=== PATIENT | male | born 1990 | race Caucasian/White ===

== ENCOUNTER 2023-04-06 13:05 | Inpatient (IN) ==
[2023-04-06] MEDS ORDERED: CONSULT PHARMACY - POTASSIUM & MAGNESIUM XX SCH (14:00)
[2023-04-06] MEDS ORDERED: NS 1,000 ML IV 1,000 ML IV SCH ×2 (14:00→18:00)
[2023-04-06] MEDS ORDERED: TYLENOL ELIXIR 325 MG UDC PO PRN (15:24)
[2023-04-06] MEDS ORDERED: NS IRRIGATION* 500 ML IR ONE (15:30)
[2023-04-06] MEDS: PROTONIX INJ 40 MG VIAL IVP SCH (15:42)
[2023-04-06] MEDS: ZOSYN VIAL 3.375 GRAMS 3.375 G in NS 100 ML IV 100 ML IV SCH ×3 (15:42→21:30)
[2023-04-06] MEDS: LEVAQUIN PREMIX IV 500 MG 500 MG/100 ML BAG IV SCH (15:42)
[2023-04-06 15:49] LABS: MAGNESIUM 1.8 mg/dL (2.0-2.9)
[2023-04-06] MEDS ORDERED: OFIRMEV IV 1000 MG VIAL 1,000 MG/100 ML VIAL IV ONE (15:51)
[2023-04-06] MEDS: OFIRMEV IV 1000 MG VIAL 1,000 MG/100 ML VIAL IV STA ×2 (15:54→16:28)
[2023-04-06 15:58] LABS: LACTIC ACID 4.4 mmol/L (0.4-2.0)
--- NOTE | 2023-04-06 16:19 | RAD ---
HISTORYLEUKOCYTOSIS CLAVICLESTUDYCHEST, 1 VIEWCOMPARISONNone availableFINDINGSThe trachea is midline. Normal heart size, there is mild elevation of the left diaphragm. There is a plate in the left clavicle. There is mild ground-glass radiopacities through the lungs. No pneumothorax or pleural effusions.IMPRESSIONGround-glass radiopacities through the lungs could represent pneumonitis or viral pneumonia clinical correlation is recommended.Electronically signed by: Marcia Balbuena (Apr 06, 2023 16:18:17)
[2023-04-06] MEDS ORDERED: NS 1,000 ML IV 500 ML IV ONE (16:27)
[2023-04-06] MEDS ORDERED: XOPENEX 1.25 MG/3 ML NEBULE NEB ONE (17:02)
[2023-04-06] MEDS: XOPENEX 1.25 MG/3 ML NEBULE NEB SCH (17:13)
[2023-04-06] MEDS ORDERED: NS 1,000 ML IV 1,000 ML with MAGNESIUM SULFATE 50% INJ VIAL 1 G IV SCH ×2 (18:00)
[2023-04-06] MEDS ORDERED: MAGNESIUM SULFATE 50% INJ VIAL ONE (18:26)
[2023-04-06] MEDS ORDERED: NS 1,000 ML IV 1,000 ML ONE (18:26)
--- NOTE | 2023-04-06 18:32 | DR.H&P ---
H&P - History & Physical for Day of: H&P Date: 04/06/23 - Chief Complaint Chief Complaint: SACRAL DECUBITUS ULCERATION, LEUKOCYTOSIS - History of Present Illness History of Present Illness: PT IS 32 WM, RESIDENT OF [facility] FOLLOWING A TRAUMATIC BRAIN INJURY. PT WAS A DIRECTED ADMIT DUE TO INFECTED SACRAL DECUBITUS WITH CT CONFIRMING OSTEOMYELITIS. PT HAD BLOOD IN HIS URINE WHEN INSERTING A CANTOR CATH WITHOUT RECENT UTI. BLOOD CULTURES AND OUTPT LABS WERE OBTAINED PRIOR TO ADMISSION REVEALING WBC 31,000. PT IS TOTAL CARE WITH MARKED NEUROLOGICAL DEFICIT, HAS COLOSOTMY AND PEG TUBE. PT ADMITTED FOR TREATMENT AND EVALUATION OF ACUTE ILLNESS. - Past Surgical History Surgical History: Bowel Resection, Ortho Surgery, Spleenectomy - Family History Family Medical History: Hypertension - Social History Does patient currently use any type of tobacco product: No Have you used tobacco products in the last 12 months: No Type of Tobacco Use: None Does any household member use tobacco: No Alcohol Use: None Drug Use: None - Review of Systems Constitutional: Fever, Weakness Eyes: No Symptoms Reported ENT: No Symptoms Reported Respiratory: No Symptoms Reported Cardiovascular: No Symptoms Reported Gastrointestinal: No Symptoms Reported Genitourinary: Hematuria Musculoskeletal: No Symptoms Reported Skin: Wound Neurological: Weakness - Physical Exam Vital Signs: Vital Signs Temperature 102.3 F Temperature 100.7 F Pulse Rate [Right Brachial] 138 Pulse Rate 121 Pulse Rate 122 Pulse Rate 122 Pulse Rate 127 Pulse Rate 136 Pulse Rate 133 Pulse Rate 131 Pulse Rate 134 Pulse Rate 133 Respiratory Rate 20 Respiratory Rate 28 Blood Pressure [Left Calf] 91/51 Blood Pressure 117/59 Blood Pressure 117/59 Blood Pressure 112/59 Blood Pressure 117/56 O2 Sat by Pulse Oximetry 100 O2 Sat by Pulse Oximetry 99 O2 Sat by Pulse Oximetry 100 O2 Sat by Pulse Oximetry 100 O2 Sat by Pulse Oximetry 98 O2 Sat by Pulse Oximetry 99 O2 Sat by Pulse Oximetry 99 O2 Sat by Pulse Oximetry 98 O2 Sat by Pulse Oximetry 98 O2 Sat by Pulse Oximetry 92 Oriented: Person Ear: Normal Nose: Normal Throat: Normal Respiratory: RLL Diminished, LLL Diminished Cardiovascular: Tachycardia : Normal Auscultation: Bowel Sounds: Normal Skin: Decreased Turgur, Wound Musculoskeletal: Deformity, Motor Deficit, Sensory Deficit Affect: Anxious Speech Pattern: Aphasic - Assessment/Plan (1) Osteomyelitis Status: Acute Plan: ADMIT, ICU BLOOD AND URINE CULTURES OBTAINED. CXR AND SUPPLEMENTAL O2 ON ADMISSION. IV HYDRATION, STRICT I&OS. RESP AIT SWAB, RESP THERAPY. IV ZOSYN, ZITHROMAX AND LEVAQUIN. VERIFY HOME MEDICATION, SURGICAL CONSULT. WOUND CULTURES, WOUND CARE. NEURO CHECKS, COLOSTOMY AND PEG TUBE CARE (2) Sacral decubitus ulcer, stage IV Status: Acute (3) Pneumonia Status: Acute (4) Traumatic brain injury with neurologic deterioration Status: Chronic - Allergies Allergies/Adverse Reactions: Allergies Allergy/AdvReac Type Severity Reaction Status Date / Time No Known Drug Allergies Allergy Unverified 03/28/19 12:29 - Medications Home Medications: Home Medications Medication Instructions Recorded Confirmed acetaminophen 325 mg tablet 650 mg feeding tube Q6H PRN 04/06/23 04/06/23 amantadine HCl 50 mg/5 mL oral 100 mg feeding tube BID 04/06/23 04/06/23 solution apixaban 5 mg tablet 5 mg feeding tube BID 04/06/23 04/06/23 baclofen 10 mg tablet 30 mg feeding tube TID 04/06/23 04/06/23 docusate sodium 50 mg/5 mL oral 100 mg feeding tube Q12H PRN 04/06/23 04/06/23 liquid Constipation doxazosin 1 mg tablet 1 mg feeding tube QDAY 04/06/23 04/06/23 famotidine 40 mg tablet 40 mg PO BID 04/06/23 04/06/23 magnesium hydroxide 400 mg/5 mL 400 mg PO ONCE 04/06/23 04/06/23 oral suspension (Milk of Magnesia) oxycodone-acetaminophen 5 mg-325 1 tab feeding tube Q8H PRN Pain 04/06/23 04/06/23 mg tablet polyethylene glycol 3350 17 17 g feeding tube QDAY PRN 04/06/23 04/06/23 gram/dose oral powder Constipation
--- NOTE | 2023-04-06 19:19 | EKG ---
Test Reason : PER PROTOCOL Blood Pressure : */* mmHG Vent. Rate : 129 BPM Atrial Rate : 129 BPM P-R Int : 124 ms QRS Dur : 84 ms QT Int : 308 ms P-R-T Axes : 75 61 47 degrees QTc Int : 451 ms Sinus tachycardia Septal infarct , age undetermined Abnormal ECG No previous ECGs available Confirmed by Topher Campuzano ([id number]) on 04/08/2023 12:51:06 PM Referred By: Confirmed By: Topher Campuzano
[2023-04-06] MEDS ORDERED: PULMICORT NEB TX 0.5 MG NEB ONE (19:21)
[2023-04-06 19:58] LABS: LACTIC ACID 2.2 mmol/L (0.4-2.0); PHOSPHORUS 3.1 mg/dL (2.6-4.7)
[2023-04-06 20:00] LABS: CREATINE KINASE 128 Units/L (39-308)
[2023-04-06] MEDS: PULMICORT NEB TX 0.5 MG NEB SCH (20:20)
[2023-04-06 20:58] LABS: BILIRUBIN,URINE NEGATIVE (NEGATIVE); BLOOD/HEMOGLOBIN,URINE 5+ (NEGATIVE); GLUCOSE, URINE NEGATIVE (NEGATIVE); KETONES,URINE NEGATIVE (NEGATIVE); LEUKOCYTE ESTERASE ,URINE 3+ (NEGATIVE); NITRITES,URINE NEGATIVE (NEGATIVE); PROTEIN,URINE 3+ (NEGATIVE); UROBILINOGEN,URINE NORMAL (NORMAL)
[2023-04-06 21:06] LABS: APPEARANCE,URINE CLOUDY (CLEAR); BACTERIA,URINE 3+ /HPF (NEGATIVE); COLOR,URINE AMBER (YELLOW); RBC,URINE TNTC /HPF (0-3); SQUAMOUS EPITHELIAL CELL,UR FEW /HPF (NEGATIVE)
[2023-04-06 21:07] LABS: HYALINE CASTS, URINE MANY /LPF (NEGATIVE)
[2023-04-06] MEDS: NS 1,000 ML IV 1,000 ML with MAGNESIUM SULFATE 50% INJ VIAL 1 G IV SCH ×2 (21:27)
[2023-04-06] MEDS: MAGNESIUM SULFATE 1 GRAM/100 mL PREMIX 1 G/100 ML BAG IV SCH (21:29)
[2023-04-06] MEDS: ROBITUSSIN DM PO SCH ×2 (21:29→21:30)
[2023-04-06] MEDS: ZITHROMAX INJ 500 MG VIAL 500 MG in NS 250 ML IV 250 ML IV SCH (21:30)
[2023-04-07] MEDS: XOPENEX 1.25 MG/3 ML NEBULE NEB SCH ×4 (00:06→17:37)
[2023-04-07 00:51] LABS: CREATINE KINASE 161 Units/L (39-308)
[2023-04-07] MEDS: NS 1,000 ML IV 1,000 ML with MAGNESIUM SULFATE 50% INJ VIAL 1 G IV SCH ×2 (02:18)
--- NOTE | 2023-04-07 05:07 | RAD ---
PROCEDURE: Chest X-ray 1 View .HISTORY: PNEUMONIA .TECHNIQUE: AP portable done at 4:33 a.m..COMPARISON: 04/06/2023.TECHNICAL QUALITY: Satisfactory .FINDINGS:Normal size heart .Mediastinum and hilar regions show no masses or lymphadenopathy .Normal central vascularity .No pulmonary consolidation, masses, pleural fluid, or pneumothorax. Patient's hand is projected over right lung base.Previous internal reduction of left clavicle fracture with plate and screws.IMPRESSION:No active cardiopulmonary disease .Electronically signed by: Darrel Serrano (Apr 07, 2023 05:06:23)
[2023-04-07] MEDS: ZOSYN VIAL 3.375 GRAMS 3.375 G in NS 100 ML IV 100 ML IV SCH ×3 (05:25→21:03)
[2023-04-07 05:51] LABS: BASOPHILS # (AUTO) 0.1 X10^3/uL (0.0-0.1); BASOPHILS % (AUTO) 0.4 % (0.2-1.0); EOSINOPHILS % (AUTO) 0.1 % (0.9-2.9); HEMATOCRIT 32.3 % (42.0-54.0); HEMOGLOBIN 10.4 g/dL (13.5-18.0); LYMPHOCYTES % (AUTO) 3.4 % (21.0-51.0); MEAN CORPUSCULAR HEMOGLOBIN 26.3 pg (27.0-34.0); MEAN CORPUSCULAR HGB CONC 32.2 g/dL (33.0-35.0); MEAN CORPUSCULAR VOLUME 81.7 fL (80.0-100.0); MEAN PLATELET VOLUME 9.1 fL (7.4-11.0); MONOCYTES # (AUTO) 0.8 x10^3/uL (0.3-0.8); MONOCYTES % (AUTO) 2.8 % (0.0-13.0); NEUTROPHILS # (AUTO) 26.5 x10^3/uL (2.2-4.8); NEUTROPHILS % (AUTO) 93.3 % (42.0-75.0); PLATELET COUNT 350 X10^3/uL (150.0-450.0); RED BLOOD COUNT 3.95 X10^6/uL (4.7-6.0); RED CELL DISTRIBUTION WIDTH 17.6 % (11.6-16.5); WHITE BLOOD COUNT 28.4 X10^3/uL (3.6-10.0)
[2023-04-07 06:01] LABS: LACTIC ACID 1.2 mmol/L (0.4-2.0)
[2023-04-07 06:03] LABS: BAND NEUTROPHILS % 7 % (0-10); PLATELET MORPHOLOGY COMMENT NORMAL (NORMAL)
[2023-04-07 06:04] LABS: ANISOCYTOSIS SLIGHT; TARGET CELLS SLIGHT
[2023-04-07 06:12] LABS: ALANINE AMINOTRANSFERASE 113 Units/L (12-78); ALBUMIN 2.5 g/dL (3.4-5.0); ALKALINE PHOSPHATASE 147 Units/L (46-116); ASPARTATE AMINO TRANSFERASE 62 Units/L (15-37); BLOOD UREA NITROGEN 24 mg/dL (7-18); CALCIUM 8.3 mg/dL (8.5-10.1); CARBON DIOXIDE 25.4 mmol/L (21-32); CHLORIDE 103 mmol/L (98-107); COR CA(FOR HYPOALB) 9.5 mg/dL (8.5-10.1); CREATININE 1.04 mg/dL (0.70-1.30); GLUCOSE 108 mg/dL (65-99); POTASSIUM 3.4 mmol/L (3.5-5.1); SODIUM 138 mmol/L (136-145); TOTAL PROTEIN 6.3 g/dL (6.4-8.2); eGFR NON BLACK RACES > 60 (>60)
[2023-04-07 06:13] LABS: CREATINE KINASE 127 Units/L (39-308)
[2023-04-07] MEDS ORDERED: CONSULT PHARMACY - POTASSIUM & MAGNESIUM XX SCH (07:00)
[2023-04-07] MEDS ORDERED: MIRALAX POWDER (255 GRAMS BTL) PO PRN (08:37)
[2023-04-07] MEDS: PULMICORT NEB TX 0.5 MG NEB SCH ×2 (08:40→20:30)
[2023-04-07] MEDS ORDERED: K-DUR TAB 20 MEQ PO SCH (09:00)
[2023-04-07] MEDS: PROTONIX INJ 40 MG VIAL IVP SCH (09:22)
[2023-04-07] MEDS: LEVAQUIN PREMIX IV 500 MG 500 MG/100 ML BAG IV SCH (09:22)
[2023-04-07] MEDS: ELIQUIS NG SCH ×2 (09:29→20:13)
[2023-04-07] MEDS: AMANTADINE HCL PEG SCH ×2 (09:29→20:01)
[2023-04-07] MEDS: LIORESAL PEG SCH ×3 (09:30→21:02)
[2023-04-07] MEDS: ROBITUSSIN DM PO SCH ×4 (09:30→20:07)
[2023-04-07] MEDS: PEPCID TAB 40 MG PEG SCH ×2 (09:30→20:13)
[2023-04-07] MEDS: ZITHROMAX INJ 500 MG VIAL 500 MG in NS 250 ML IV 250 ML IV SCH (10:26)
[2023-04-07] MEDS: NS 1,000 ML IV 1,000 ML IV SCH ×3 (10:29→22:37)
[2023-04-07] MEDS ORDERED: VERSED ONE (12:36)
[2023-04-07] MEDS ORDERED: KETAMINE 50 MG/5 ML-NACL SYRNG ONE (12:36)
[2023-04-07] MEDS ORDERED: DIPRIVAN VIAL 20 ML ONE (12:37)
[2023-04-07] MEDS ORDERED: ANCEF VIAL 1 GRAM ONE (13:01)
[2023-04-07] MEDS ORDERED: LR 1,000 ML IV 1,000 ML IV ONE (13:01)
[2023-04-07] MEDS ORDERED: NS 100 ML IV 100 ML ONE (13:02)
[2023-04-07] MEDS ORDERED: XYLOCAINE 1 % (PLAIN) ONE ×2 (13:06→13:57)
[2023-04-07] MEDS ORDERED: FENTANYL VIAL INJ 100 mcg ONE (13:38)
[2023-04-07] MEDS ORDERED: POLYMYXIN B SULFATE ONE (13:59)
[2023-04-07] MEDS ORDERED: NS IRRIGATION* 500 ML IR ONE (14:48)
[2023-04-07] MEDS: INDERAL TAB 10 MG PEG SCH ×2 (15:22→21:03)
[2023-04-07] MEDS ORDERED: STERILE WATER IRRIGATION IR ONE (15:42)
--- NOTE | 2023-04-07 16:52 | RAD ---
HISTORYPAC PLACEMENT.brSTUDYCHEST, 1 VIEW, 2:35 p.m.OIMMBNOKID49/27/2023, 4:33 a.m.FINDINGSRight subclavian central venous MediPort catheter is in the expected location of the superior cavoatrial junction.Lungs are moderately inflated with no pneumonia or pleural effusion. No pneumothorax.Heart size is normal.Bones are unremarkable.Fixation hardware is present on the left clavicle.IMPRESSION1. Uncomplicated line placementElectronically signed by: Raul Blair (Apr 07, 2023 16:50:39)
[2023-04-07] MEDS ORDERED: KLOR-CON GT SCH (21:00)
[2023-04-08] MEDS: XOPENEX 1.25 MG/3 ML NEBULE NEB SCH ×4 (00:10→16:45)
[2023-04-08] MEDS: NS 1,000 ML IV 1,000 ML IV SCH ×2 (04:59→05:12)
[2023-04-08] MEDS: LIORESAL PEG SCH ×3 (05:00→21:17)
[2023-04-08] MEDS: INDERAL TAB 10 MG PEG SCH ×3 (05:00→21:18)
[2023-04-08] MEDS: ZOSYN VIAL 3.375 GRAMS 3.375 G in NS 100 ML IV 100 ML IV SCH ×3 (05:00→21:19)
[2023-04-08 06:31] LABS: BASOPHILS # (AUTO) 0.1 X10^3/uL (0.0-0.1); BASOPHILS % (AUTO) 0.3 % (0.2-1.0); EOSINOPHILS # (AUTO) 0.2 x10^3/uL (0.0-0.2); EOSINOPHILS % (AUTO) 0.9 % (0.9-2.9); HEMATOCRIT 29.3 % (42.0-54.0); HEMOGLOBIN 9.3 g/dL (13.5-18.0); LYMPHOCYTES # (AUTO) 2.1 X10^3/uL (1.3-2.9); LYMPHOCYTES % (AUTO) 11.1 % (21.0-51.0); MEAN CORPUSCULAR HEMOGLOBIN 25.9 pg (27.0-34.0); MEAN CORPUSCULAR HGB CONC 31.6 g/dL (33.0-35.0); MEAN CORPUSCULAR VOLUME 81.9 fL (80.0-100.0); MEAN PLATELET VOLUME 9.2 fL (7.4-11.0); MONOCYTES # (AUTO) 0.6 x10^3/uL (0.3-0.8); MONOCYTES % (AUTO) 3.1 % (0.0-13.0); NEUTROPHILS # (AUTO) 15.7 x10^3/uL (2.2-4.8); NEUTROPHILS % (AUTO) 84.6 % (42.0-75.0); PLATELET COUNT 337 X10^3/uL (150.0-450.0); RED BLOOD COUNT 3.58 X10^6/uL (4.7-6.0); RED CELL DISTRIBUTION WIDTH 17.8 % (11.6-16.5)
[2023-04-08 06:36] LABS: ALANINE AMINOTRANSFERASE 73 Units/L (12-78); ALBUMIN 2.1 g/dL (3.4-5.0); ALKALINE PHOSPHATASE 145 Units/L (46-116); ASPARTATE AMINO TRANSFERASE 32 Units/L (15-37); BLOOD UREA NITROGEN 11 mg/dL (7-18); CARBON DIOXIDE 26.3 mmol/L (21-32); CHLORIDE 108 mmol/L (98-107); COR CA(FOR HYPOALB) 9.5 mg/dL (8.5-10.1); COR NA(FOR HYPERGLY) 143 mmol/L (136-145); CREATININE 0.55 mg/dL (0.70-1.30); GLUCOSE 158 mg/dL (65-99); POTASSIUM 3.6 mmol/L (3.5-5.1); SODIUM 142 mmol/L (136-145); TOTAL PROTEIN 5.7 g/dL (6.4-8.2); eGFR NON BLACK RACES > 60 (>60)
[2023-04-08 06:46] LABS: WHITE BLOOD COUNT 18.6 X10^3/uL (3.6-10.0)
[2023-04-08] MEDS ORDERED: CONSULT PHARMACY - POTASSIUM & MAGNESIUM XX SCH (07:00)
[2023-04-08] MEDS: PROTONIX INJ 40 MG VIAL IVP SCH (07:59)
[2023-04-08] MEDS: LEVAQUIN PREMIX IV 500 MG 500 MG/100 ML BAG IV SCH (07:59)
[2023-04-08] MEDS: ROBITUSSIN DM PO SCH ×4 (07:59→21:18)
[2023-04-08] MEDS: ELIQUIS NG SCH ×2 (08:00→21:18)
[2023-04-08] MEDS ORDERED: K-DUR TAB 20 MEQ PO SCH (08:00)
[2023-04-08] MEDS: PEPCID TAB 40 MG PEG SCH ×2 (08:00→21:18)
[2023-04-08] MEDS: AMANTADINE HCL PEG SCH ×2 (08:01→21:19)
[2023-04-08] MEDS: PULMICORT NEB TX 0.5 MG NEB SCH ×2 (09:05→21:00)
[2023-04-08] MEDS: NS + KCL 20 MEQ/L 1,000 ML IV SCH ×2 (09:23→21:19)
[2023-04-08 09:55] VITALS: BMI 25.2
[2023-04-08] MEDS: PERCOCET TAB 5/325 MG PO PRN ×2 (11:57→21:18)
[2023-04-09] MEDS: XOPENEX 1.25 MG/3 ML NEBULE NEB SCH ×4 (00:15→16:33)
[2023-04-09] MEDS: LIORESAL PEG SCH ×3 (05:37→21:00)
[2023-04-09] MEDS: INDERAL TAB 10 MG PEG SCH ×3 (05:37→21:00)
[2023-04-09] MEDS: ZOSYN VIAL 3.375 GRAMS 3.375 G in NS 100 ML IV 100 ML IV SCH (05:37)
[2023-04-09 05:53] LABS: BASOPHILS # (AUTO) 0.1 X10^3/uL (0.0-0.1); EOSINOPHILS # (AUTO) 0.4 x10^3/uL (0.0-0.2); EOSINOPHILS % (AUTO) 2.4 % (0.9-2.9); HEMATOCRIT 30.7 % (42.0-54.0); LYMPHOCYTES # (AUTO) 2.9 X10^3/uL (1.3-2.9); MEAN CORPUSCULAR HEMOGLOBIN 26.6 pg (27.0-34.0); MEAN CORPUSCULAR HGB CONC 32.6 g/dL (33.0-35.0); MEAN CORPUSCULAR VOLUME 81.4 fL (80.0-100.0); MEAN PLATELET VOLUME 9.6 fL (7.4-11.0); MONOCYTES # (AUTO) 0.6 x10^3/uL (0.3-0.8); MONOCYTES % (AUTO) 4.2 % (0.0-13.0); NEUTROPHILS # (AUTO) 10.7 x10^3/uL (2.2-4.8); NEUTROPHILS % (AUTO) 72.4 % (42.0-75.0); PLATELET COUNT 353 X10^3/uL (150.0-450.0); RED BLOOD COUNT 3.77 X10^6/uL (4.7-6.0); RED CELL DISTRIBUTION WIDTH 17.9 % (11.6-16.5); WHITE BLOOD COUNT 14.8 X10^3/uL (3.6-10.0)
[2023-04-09 05:55] LABS: ALANINE AMINOTRANSFERASE 68 Units/L (12-78); ALBUMIN 2.2 g/dL (3.4-5.0); ALKALINE PHOSPHATASE 164 Units/L (46-116); ASPARTATE AMINO TRANSFERASE 26 Units/L (15-37); BLOOD UREA NITROGEN 8 mg/dL (7-18); CALCIUM 8.2 mg/dL (8.5-10.1); CARBON DIOXIDE 25.6 mmol/L (21-32); CHLORIDE 107 mmol/L (98-107); COR CA(FOR HYPOALB) 9.6 mg/dL (8.5-10.1); COR NA(FOR HYPERGLY) 142 mmol/L (136-145); GLUCOSE 133 mg/dL (65-99); POTASSIUM 4.1 mmol/L (3.5-5.1); SODIUM 141 mmol/L (136-145); TOTAL PROTEIN 5.8 g/dL (6.4-8.2); eGFR NON BLACK RACES > 60 (>60)
--- NOTE | 2023-04-09 06:01 | RAD ---
PROCEDURE: Chest X-ray 1 View .HISTORY: Upper respiratory tract infection.TECHNIQUE: AP view .COMPARISON: 04/07/2023.TECHNICAL QUALITY: Satisfactory .FINDINGS:Right subclavian Port-A-Cath in good position.Normal size heart.Mediastinum and hilar regions show no masses or lymphadenopathy .Normal central vascularity .No pulmonary consolidation, masses, pleural fluid, or pneumothorax .Previous internal reduction left clavicle fracture with plate and screws.IMPRESSION:No active cardiopulmonary disease .Electronically signed by: Darrel Serrano (Apr 09, 2023 06:00:11)
[2023-04-09] MEDS: PULMICORT NEB TX 0.5 MG NEB SCH ×2 (08:24→21:00)
[2023-04-09] MEDS: AMANTADINE HCL PEG SCH ×2 (09:16→20:42)
[2023-04-09] MEDS: ROBITUSSIN DM PO SCH ×4 (09:16→20:40)
[2023-04-09] MEDS: PROTONIX INJ 40 MG VIAL IVP SCH (09:16)
[2023-04-09] MEDS: PEPCID TAB 40 MG PEG SCH ×2 (09:17→20:40)
[2023-04-09] MEDS: PERCOCET TAB 5/325 MG PO PRN ×3 (09:17→23:18)
[2023-04-09] MEDS: LEVAQUIN PREMIX IV 500 MG 500 MG/100 ML BAG IV SCH (09:18)
[2023-04-09] MEDS: NS + KCL 20 MEQ/L 1,000 ML IV SCH ×3 (09:18→23:19)
[2023-04-09] MEDS: ELIQUIS NG SCH ×2 (09:18→20:40)
[2023-04-09] MEDS: BACTRIM DS TAB PO SCH (20:40)
[2023-04-10] MEDS: XOPENEX 1.25 MG/3 ML NEBULE NEB SCH ×5 (00:05→16:28)
[2023-04-10 05:14] LABS: BASOPHILS # (AUTO) 0.1 X10^3/uL (0.0-0.1); BASOPHILS % (AUTO) 1.2 % (0.2-1.0); EOSINOPHILS # (AUTO) 0.3 x10^3/uL (0.0-0.2); EOSINOPHILS % (AUTO) 3.4 % (0.9-2.9); HEMATOCRIT 34.6 % (42.0-54.0); HEMOGLOBIN 11.2 g/dL (13.5-18.0); LYMPHOCYTES # (AUTO) 3.4 X10^3/uL (1.3-2.9); LYMPHOCYTES % (AUTO) 37.5 % (21.0-51.0); MEAN CORPUSCULAR HEMOGLOBIN 26.2 pg (27.0-34.0); MEAN CORPUSCULAR HGB CONC 32.3 g/dL (33.0-35.0); MEAN CORPUSCULAR VOLUME 81.2 fL (80.0-100.0); MEAN PLATELET VOLUME 9.3 fL (7.4-11.0); MONOCYTES # (AUTO) 0.7 x10^3/uL (0.3-0.8); MONOCYTES % (AUTO) 7.7 % (0.0-13.0); NEUTROPHILS # (AUTO) 4.6 x10^3/uL (2.2-4.8); NEUTROPHILS % (AUTO) 50.2 % (42.0-75.0); PLATELET COUNT 358 X10^3/uL (150.0-450.0); RED BLOOD COUNT 4.26 X10^6/uL (4.7-6.0); WHITE BLOOD COUNT 9.2 X10^3/uL (3.6-10.0)
[2023-04-10] MEDS: LIORESAL PEG SCH ×3 (05:17→20:59)
[2023-04-10] MEDS: PERCOCET TAB 5/325 MG PO PRN ×3 (05:17→20:59)
[2023-04-10] MEDS: INDERAL TAB 10 MG PEG SCH ×3 (05:17→20:59)
[2023-04-10 05:23] LABS: ALANINE AMINOTRANSFERASE 54 Units/L (12-78); ALBUMIN 2.4 g/dL (3.4-5.0); ALKALINE PHOSPHATASE 167 Units/L (46-116); ASPARTATE AMINO TRANSFERASE 16 Units/L (15-37); BLOOD UREA NITROGEN 6 mg/dL (7-18); CALCIUM 8.5 mg/dL (8.5-10.1); CARBON DIOXIDE 25.7 mmol/L (21-32); CHLORIDE 104 mmol/L (98-107); COR CA(FOR HYPOALB) 9.8 mg/dL (8.5-10.1); GLUCOSE 91 mg/dL (65-99); POTASSIUM 3.7 mmol/L (3.5-5.1); SODIUM 139 mmol/L (136-145); eGFR NON BLACK RACES > 60 (>60)
[2023-04-10] MEDS ORDERED: CONSULT PHARMACY - POTASSIUM & MAGNESIUM XX SCH (07:00)
[2023-04-10] MEDS: NS + KCL 20 MEQ/L 1,000 ML IV SCH ×2 (08:01→12:58)
[2023-04-10] MEDS: LEVAQUIN PREMIX IV 500 MG 500 MG/100 ML BAG IV SCH (08:01)
[2023-04-10] MEDS: PROTONIX INJ 40 MG VIAL IVP SCH (08:02)
[2023-04-10] MEDS: ELIQUIS NG SCH ×2 (08:02→20:34)
[2023-04-10] MEDS: ROBITUSSIN DM PO SCH ×4 (08:02→20:34)
[2023-04-10] MEDS: BACTRIM DS TAB PO SCH ×2 (08:02→20:33)
[2023-04-10] MEDS: PEPCID TAB 40 MG PEG SCH ×2 (08:02→20:34)
[2023-04-10] MEDS: AMANTADINE HCL PEG SCH ×2 (08:03→20:33)
[2023-04-10] MEDS ORDERED: K-DUR TAB 20 MEQ PO SCH (09:00)
[2023-04-10] MEDS: PULMICORT NEB TX 0.5 MG NEB SCH ×2 (09:12→20:16)
--- NOTE | 2023-04-10 12:32 | PCM.PROG ---
Progress Note - Progress Note for Day of Date of Exam: 04/10/23 - Subjective Subjective: He is a 32-year-old white male who was a direct admit with sepsis, UTI, osteomyelitis, and pneumonia. Since admission, patient has had wound cultures, urine culture, and blood cultures. The patient's urine culture is growing out klebsiella sensitive to Zosyn and Levaquin, which he has been on since admission. The patient does have history of traumatic brain injury and has total care. He is receiving feedings via his PEG tube and also has a colostomy with good output and has not had any complications. He has a Brown catheter with strict I's and O's and since inserting the catheter, the patient has put out very well. His blood pressure was low due to sepsis, with resolution in hypotension we restarted his propranolol 20 tid and he has tolerated it well. Pt had klebsiella + UTI and MRSA to sacral decubitus. Dr. Cardona ordered continue po bactrim via peg tube and IV zyvox for 6weeks for oseteomyelitis, confirmed on ct of pelvis. Plan to continue current wound care and gentle IV hydration. - Past Medical Family Social History Past Med/Fam/Surg Hx: No changes since H&P Allergies: Allergies No Known Drug Allergies Allergy (Verified 04/08/23 18:48) - Review of Systems ROS: No change since H&P - Vital Signs and I&O's Vital Signs: Vital Signs Temperature 97.1 F Pulse Rate 84 Pulse Rate 84 Pulse Rate 82 Pulse Rate 69 Pulse Rate 79 Pulse Rate 70 Pulse Rate 56 Pulse Rate 63 Pulse Rate 65 Pulse Rate 62 Pulse Rate 58 Pulse Rate 60 Pulse Rate 69 Pulse Rate 81 Pulse Rate 63 Pulse Rate 74 Pulse Rate 75 Pulse Rate 60 Pulse Rate 65 Respiratory Rate 16 Respiratory Rate 14 Respiratory Rate 15 Respiratory Rate 14 Respiratory Rate 13 Respiratory Rate 13 Respiratory Rate 14 Respiratory Rate 12 Respiratory Rate 13 Respiratory Rate 10 Respiratory Rate 14 Respiratory Rate 11 Respiratory Rate 14 Respiratory Rate 8 Respiratory Rate 12 Respiratory Rate 12 Respiratory Rate 18 Respiratory Rate 16 Respiratory Rate 16 Respiratory Rate 12 Respiratory Rate 16 Blood Pressure 139/78 Blood Pressure 132/65 Blood Pressure 132/65 Blood Pressure 132/65 Blood Pressure 146/80 Blood Pressure 131/78 Blood Pressure 131/78 Blood Pressure 134/84 Blood Pressure 121/79 Blood Pressure 121/65 Blood Pressure 118/63 Blood Pressure 118/63 Blood Pressure 118/63 Blood Pressure 117/75 Blood Pressure 113/56 Blood Pressure 116/64 Blood Pressure 113/70 Blood Pressure 113/70 Blood Pressure 126/59 Blood Pressure 115/57 Blood Pressure 118/55 Blood Pressure 126/59 Blood Pressure 134/71 O2 Sat by Pulse Oximetry 93 O2 Sat by Pulse Oximetry 94 O2 Sat by Pulse Oximetry 95 O2 Sat by Pulse Oximetry 96 O2 Sat by Pulse Oximetry 98 O2 Sat by Pulse Oximetry 97 O2 Sat by Pulse Oximetry 97 O2 Sat by Pulse Oximetry 98 O2 Sat by Pulse Oximetry 96 O2 Sat by Pulse Oximetry 95 O2 Sat by Pulse Oximetry 94 O2 Sat by Pulse Oximetry 100 O2 Sat by Pulse Oximetry 96 O2 Sat by Pulse Oximetry 92 O2 Sat by Pulse Oximetry 95 O2 Sat by Pulse Oximetry 96 O2 Sat by Pulse Oximetry 98 O2 Sat by Pulse Oximetry 98 O2 Sat by Pulse Oximetry 99 Intake and Output: Intake & Output 04/08/23 04/09/23 04/10/23 04/11/23 11:59 11:59 11:59 11:59 Intake Total 3472 / 3472 3222 / 3222 4066 / 4066 Output Total 4099 / 4099 4150 / 4150 3950 / 3950 Balance -627 / -627 -928 / -928 116 / 116 - Physical Exam Oriented: Person Ear: Normal Nose: Normal Throat: Normal Cardiovascular: Tachycardia : Normal Auscultation: Bowel Sounds: Normal Tenderness: Normal (no grimacing on palpation) Skin: Decreased Turgur, Wound Musculoskeletal: Deformity, Motor Deficit, Sensory Deficit Affect: Anxious Speech Pattern: Aphasic - Laboratory and Diagnostics Result Diagrams: 04/10/23 04:28 04/10/23 04:28 Labs: 04/07/23 00:00 Buttock Wound Culture - Preliminary Methicillin Resis Staph Aureus 04/06/23 20:45 Urine,Catheterized Urine Culture - Final Klebsiella Oxytoca Laboratory WBC 9.2 X10^3/uL (3.6-10.0) 04/10/23 04:28 RBC 4.26 X10^6/uL (4.7-6.0) L 04/10/23 04:28 Hgb 11.2 g/dL (13.5-18.0) L 04/10/23 04:28 Hct 34.6 % (42.0-54.0) L 04/10/23 04:28 MCV 81.2 fL (80.0-100.0) 04/10/23 04:28 MCH 26.2 pg (27.0-34.0) L 04/10/23 04:28 MCHC 32.3 g/dL (33.0-35.0) L 04/10/23 04:28 RDW 18.0 % (11.6-16.5) H 04/10/23 04:28 Plt Count 358 X10^3/uL (150.0-450.0) 04/10/23 04:28 Plt Count Comment Adequate (ADEQUATE) 04/07/23 05:31 MPV 9.3 fL (7.4-11.0) 04/10/23 04:28 Neut % (Auto) 50.2 % (42.0-75.0) 04/10/23 04:28 Lymph % (Auto) 37.5 % (21.0-51.0) 04/10/23 04:28 [place] % (Auto) 7.7 % (0.0-13.0) 04/10/23 04:28 Eos % (Auto) 3.4 % (0.9-2.9) H 04/10/23 04:28 Baso % (Auto) 1.2 % (0.2-1.0) H 04/10/23 04:28 Neut # (Auto) 4.6 x10^3/uL (2.2-4.8) 04/10/23 04:28 Lymph # (Auto) 3.4 X10^3/uL (1.3-2.9) H 04/10/23 04:28 [place] # (Auto) 0.7 x10^3/uL (0.3-0.8) 04/10/23 04:28 Eos # (Auto) 0.3 x10^3/uL (0.0-0.2) H 04/10/23 04:28 Baso # (Auto) 0.1 X10^3/uL (0.0-0.1) 04/10/23 04:28 Absolute Nucleated RBC 0.0 /100WBC 04/10/23 04:28 Total Counted 100 04/07/23 05:31 Neutrophils % (Manual) 87 % (39-76) H 04/07/23 05:31 Band Neutrophils % 7 % (0-10) 04/07/23 05:31 Lymphocytes % (Manual) 3 % (13-43) L 04/07/23 05:31 Monocytes % (Manual) 3 % (4-9) L 04/07/23 05:31 Plt Morphology Comment Normal (NORMAL) 04/07/23 05:31 RBC Morphology Abnormal (NORMAL) 04/07/23 05:31 Anisocytosis Slight A 04/07/23 05:31 Target Cells Slight A 04/07/23 05:31 PT 21.5 SECONDS (11.8-14.3) 04/06/23 19:25 INR Target Range - 04/06/23 19:25 INR 1.90 (0.8-1.3) H 04/06/23 19:25 APTT 35.4 SECONDS (22.9-36.5) 04/06/23 19:25 PTT Comment - 04/06/23 19:25 Sodium 139 mmol/L (136-145) 04/10/23 04:28 Corrected Sodium TNP 04/10/23 04:28 Potassium 3.7 mmol/L (3.5-5.1) 04/10/23 04:28 Chloride 104 mmol/L (98-107) 04/10/23 04:28 Carbon Dioxide 25.7 mmol/L (21-32) 04/10/23 04:28 BUN 6 mg/dL (7-18) L 04/10/23 04:28 Creatinine 0.50 mg/dL (0.70-1.30) L 04/10/23 04:28 Est GFR (MDRD) Af Amer > 60 (>60) 04/10/23 04:28 Est GFR (MDRD) Non-Af > 60 (>60) 04/10/23 04:28 Glucose 91 mg/dL (65-99) 04/10/23 04:28 Lactic Acid 1.2 mmol/L (0.4-2.0) 04/07/23 05:31 Calcium 8.5 mg/dL (8.5-10.1) 04/10/23 04:28 Corrected Calcium 9.8 mg/dL (8.5-10.1) 04/10/23 04:28 Phosphorus 3.1 mg/dL (2.6-4.7) 04/06/23 19:25 Magnesium 2.4 mg/dL (2.0-2.9) 04/07/23 05:31 Total Bilirubin 0.30 mg/dL (0.2-1.0) 04/10/23 04:28 AST 16 Units/L (15-37) 04/10/23 04:28 ALT 54 Units/L (12-78) 04/10/23 04:28 Alkaline Phosphatase 167 Units/L (46-116) H 04/10/23 04:28 Creatine Kinase 127 Units/L (39-308) 04/07/23 05:31 Troponin I High Sens < 4.0 ng/L (4.0-60.0) L 04/07/23 05:31 Total Protein 6.0 g/dL (6.4-8.2) L 04/10/23 04:28 Albumin 2.4 g/dL (3.4-5.0) L 04/10/23 04:28 Globulin 3.6 g/dL (2.5-4.5) 04/10/23 04:28 Albumin/Globulin Ratio 0.7 Ratio (1.1-2.1) L 04/10/23 04:28 Amylase 22 Units/L (25-115) L 04/06/23 19:25 Lipase 92 Units/L (73-393) 04/06/23 19:25 Specimen Type Catherized urine 04/06/23 20:45 Urine Color [place] (YELLOW) 04/06/23 20:45 Urine Appearance Cloudy (CLEAR) 04/06/23 20:45 Urine pH 6.0 (5.0 - 8.0) 04/06/23 20:45 Ur Specific [place] 1.020 (1.000-1.030) 04/06/23 20:45 Urine Protein 3+ (NEGATIVE) 04/06/23 20:45 Urine Glucose (UA) Negative (NEGATIVE) 04/06/23 20:45 Urine Ketones Negative (NEGATIVE) 04/06/23 20:45 Urine Blood 5+ (NEGATIVE) 04/06/23 20:45 Urine Nitrite Negative (NEGATIVE) 04/06/23 20:45 Urine Bilirubin Negative (NEGATIVE) 04/06/23 20:45 Urine Urobilinogen Normal (NORMAL) 04/06/23 20:45 Ur Leukocyte Esterase 3+ (NEGATIVE) 04/06/23 20:45 Urine RBC Tntc /HPF (0-3) A 04/06/23 20:45 Urine WBC Tntc /HPF (0-5) A 04/06/23 20:45 Ur Squamous Epith Cells Few /HPF (NEGATIVE) 04/06/23 20:45 Urine Bacteria 3+ /HPF (NEGATIVE) 04/06/23 20:45 Hyaline Casts Many /LPF (NEGATIVE) 04/06/23 20:45 Urine Mucus Many /HPF (NEGATIVE) 04/06/23 20:45 Ur Culture Indicated? Yes/culture set up 04/06/23 20:45 SARS-CoV-2 (PCR) Negative (NEGATIVE) 04/07/23 08:10 - Plan (1) Osteomyelitis Status: Acute Plan: ADMIT, ICU BLOOD AND URINE CULTURES OBTAINED. CXR AND SUPPLEMENTAL O2 ON ADMISSION. IV HYDRATION, STRICT I&OS. RESP AIT SWAB, RESP THERAPY. IV ZOSYN, ZITHROMAX AND LEVAQUIN. VERIFY HOME MEDICATION, SURGICAL CONSULT. WOUND CULTURES, WOUND CARE. NEURO CHECKS, COLOSTOMY AND PEG TUBE CARE (2) Urinary tract infection Status: Acute (3) Sacral decubitus ulcer, stage IV Status: Acute (4) Sepsis Status: Acute (5) Pneumonia Status: Acute (6) Traumatic brain injury with neurologic deterioration Status: Chronic
[2023-04-10] MEDS: ZYVOX 600MG IV 600 MG/300 ML BAG IV SCH ×2 (12:57→21:00)
[2023-04-11] MEDS: XOPENEX 1.25 MG/3 ML NEBULE NEB SCH ×5 (00:10→17:14)
[2023-04-11] MEDS: NS + KCL 20 MEQ/L 1,000 ML IV SCH ×3 (04:25→18:28)
[2023-04-11] MEDS: LIORESAL PEG SCH ×3 (05:02→21:14)
[2023-04-11] MEDS: INDERAL TAB 10 MG PEG SCH ×3 (05:02→21:13)
[2023-04-11] MEDS: PERCOCET TAB 5/325 MG PO PRN (05:03)
[2023-04-11 05:14] LABS: BASOPHILS # (AUTO) 0.1 X10^3/uL (0.0-0.1); BASOPHILS % (AUTO) 1.1 % (0.2-1.0); EOSINOPHILS # (AUTO) 0.2 x10^3/uL (0.0-0.2); EOSINOPHILS % (AUTO) 2.8 % (0.9-2.9); HEMATOCRIT 34.1 % (42.0-54.0); HEMOGLOBIN 11.1 g/dL (13.5-18.0); LYMPHOCYTES % (AUTO) 47.9 % (21.0-51.0); MEAN CORPUSCULAR HEMOGLOBIN 26.3 pg (27.0-34.0); MEAN CORPUSCULAR HGB CONC 32.5 g/dL (33.0-35.0); MEAN CORPUSCULAR VOLUME 80.9 fL (80.0-100.0); MEAN PLATELET VOLUME 9.2 fL (7.4-11.0); MONOCYTES # (AUTO) 0.6 x10^3/uL (0.3-0.8); MONOCYTES % (AUTO) 7.6 % (0.0-13.0); NEUTROPHILS # (AUTO) 3.4 x10^3/uL (2.2-4.8); NEUTROPHILS % (AUTO) 40.6 % (42.0-75.0); PLATELET COUNT 428 X10^3/uL (150.0-450.0); RED BLOOD COUNT 4.22 X10^6/uL (4.7-6.0); RED CELL DISTRIBUTION WIDTH 17.9 % (11.6-16.5); WHITE BLOOD COUNT 8.4 X10^3/uL (3.6-10.0)
[2023-04-11 05:26] LABS: ALANINE AMINOTRANSFERASE 40 Units/L (12-78); ALBUMIN 2.5 g/dL (3.4-5.0); ALKALINE PHOSPHATASE 150 Units/L (46-116); ASPARTATE AMINO TRANSFERASE 12 Units/L (15-37); BLOOD UREA NITROGEN 6 mg/dL (7-18); CALCIUM 8.2 mg/dL (8.5-10.1); CARBON DIOXIDE 25.3 mmol/L (21-32); CHLORIDE 106 mmol/L (98-107); COR CA(FOR HYPOALB) 9.4 mg/dL (8.5-10.1); GLUCOSE 93 mg/dL (65-99); POTASSIUM 4.2 mmol/L (3.5-5.1); SODIUM 140 mmol/L (136-145); TOTAL PROTEIN 6.2 g/dL (6.4-8.2); eGFR NON BLACK RACES > 60 (>60)
[2023-04-11] MEDS: PEPCID TAB 40 MG PEG SCH ×2 (08:13→20:55)
[2023-04-11] MEDS: BACTRIM DS TAB PO SCH (08:13)
[2023-04-11] MEDS: ELIQUIS NG SCH ×2 (08:13→20:54)
[2023-04-11] MEDS: ZYVOX 600MG IV 600 MG/300 ML BAG IV SCH ×2 (08:14→20:55)
[2023-04-11] MEDS: ROBITUSSIN DM PO SCH ×4 (08:14→20:53)
[2023-04-11] MEDS: PROTONIX INJ 40 MG VIAL IVP SCH (08:14)
[2023-04-11] MEDS: AMANTADINE HCL PEG SCH ×2 (08:14→20:52)
[2023-04-11] MEDS: PULMICORT NEB TX 0.5 MG NEB SCH ×2 (08:37→20:06)
[2023-04-11] MEDS ORDERED: TYLENOL ELIXIR 325 MG UDC PEG PRN (13:45)
[2023-04-11] MEDS: BACTRIM SUSP 20 ML PEG SCH (20:54)
[2023-04-11] MEDS: PERCOCET TAB 5/325 MG PEG PRN (20:56)
[2023-04-12] MEDS: XOPENEX 1.25 MG/3 ML NEBULE NEB SCH ×4 (00:05→17:05)
[2023-04-12] MEDS: NS + KCL 20 MEQ/L 1,000 ML IV SCH ×3 (04:57→17:15)
[2023-04-12] MEDS: LIORESAL PEG SCH ×3 (05:05→21:46)
[2023-04-12] MEDS: INDERAL TAB 10 MG PEG SCH ×3 (05:05→21:46)
[2023-04-12] MEDS: PERCOCET TAB 5/325 MG PEG PRN ×3 (05:06→21:29)
[2023-04-12 05:14] LABS: BASOPHILS # (AUTO) 0.1 X10^3/uL (0.0-0.1); BASOPHILS % (AUTO) 1.3 % (0.2-1.0); EOSINOPHILS # (AUTO) 0.2 x10^3/uL (0.0-0.2); HEMATOCRIT 34.2 % (42.0-54.0); HEMOGLOBIN 11.4 g/dL (13.5-18.0); LYMPHOCYTES # (AUTO) 3.6 X10^3/uL (1.3-2.9); LYMPHOCYTES % (AUTO) 38.2 % (21.0-51.0); MEAN CORPUSCULAR HEMOGLOBIN 26.8 pg (27.0-34.0); MEAN CORPUSCULAR HGB CONC 33.2 g/dL (33.0-35.0); MEAN CORPUSCULAR VOLUME 80.6 fL (80.0-100.0); MEAN PLATELET VOLUME 9.1 fL (7.4-11.0); MONOCYTES # (AUTO) 0.9 x10^3/uL (0.3-0.8); MONOCYTES % (AUTO) 9.3 % (0.0-13.0); NEUTROPHILS # (AUTO) 4.6 x10^3/uL (2.2-4.8); NEUTROPHILS % (AUTO) 49.2 % (42.0-75.0); PLATELET COUNT 488 X10^3/uL (150.0-450.0); RED BLOOD COUNT 4.24 X10^6/uL (4.7-6.0); RED CELL DISTRIBUTION WIDTH 18.7 % (11.6-16.5); WHITE BLOOD COUNT 9.3 X10^3/uL (3.6-10.0)
[2023-04-12 05:23] LABS: ALANINE AMINOTRANSFERASE 49 Units/L (12-78); ALBUMIN 2.8 g/dL (3.4-5.0); ALKALINE PHOSPHATASE 135 Units/L (46-116); ASPARTATE AMINO TRANSFERASE 23 Units/L (15-37); BLOOD UREA NITROGEN 8 mg/dL (7-18); CALCIUM 8.5 mg/dL (8.5-10.1); CARBON DIOXIDE 26.4 mmol/L (21-32); COR CA(FOR HYPOALB) 9.5 mg/dL (8.5-10.1); CREATININE 0.54 mg/dL (0.70-1.30); GLUCOSE 104 mg/dL (65-99); TOTAL PROTEIN 6.6 g/dL (6.4-8.2); eGFR NON BLACK RACES > 60 (>60)
[2023-04-12 05:36] LABS: CHLORIDE 103 mmol/L (98-107); POTASSIUM 4.2 mmol/L (3.5-5.1); SODIUM 138 mmol/L (136-145)
[2023-04-12] MEDS: PROTONIX INJ 40 MG VIAL IVP SCH (08:26)
[2023-04-12] MEDS: ZYVOX 600MG IV 600 MG/300 ML BAG IV SCH ×2 (08:26→21:26)
[2023-04-12] MEDS: PEPCID TAB 40 MG PEG SCH ×2 (08:27→21:30)
[2023-04-12] MEDS: ROBITUSSIN DM PO SCH ×4 (08:27→21:28)
[2023-04-12] MEDS: ELIQUIS NG SCH ×2 (08:27→21:29)
[2023-04-12] MEDS: BACTRIM SUSP 20 ML PEG SCH ×2 (08:27→21:28)
[2023-04-12] MEDS: AMANTADINE HCL PEG SCH ×2 (08:28→21:34)
[2023-04-12] MEDS: PULMICORT NEB TX 0.5 MG NEB SCH ×2 (08:30→21:10)
--- NOTE | 2023-04-12 15:03 | RAD ---
[email or web address].br HX: PE, QUADRIPLEGIC SX: COLOSTOMY, ORTHO.brSTUDYCHEST, 1 [id number]/29/2023FINDINGSTrachea is midline. There is borderline heart size. There is a right-sided Port-A-Cath with the tip in the SVC. There is a plate in the left clavicle unchanged since prior. There is no evidence of pneumonia, pneumothorax or pleural effusions. There has interval improvement of previously seen central congestion.IMPRESSIONNo acute cardiopulmonary findings .Electronically signed by: Marcia Balbuena (Apr 12, 2023 15:02:43)
[2023-04-13] MEDS: XOPENEX 1.25 MG/3 ML NEBULE NEB SCH ×4 (00:15→17:10)
[2023-04-13] MEDS: LIORESAL PEG SCH ×3 (05:06→21:08)
[2023-04-13] MEDS: INDERAL TAB 10 MG PEG SCH ×3 (05:06→21:08)
[2023-04-13] MEDS: PERCOCET TAB 5/325 MG PEG PRN (05:07)
[2023-04-13] MEDS: NS + KCL 20 MEQ/L 1,000 ML IV SCH ×2 (05:30→20:22)
[2023-04-13 05:43] LABS: BASOPHILS # (AUTO) 0.1 X10^3/uL (0.0-0.1); BASOPHILS % (AUTO) 1.5 % (0.2-1.0); EOSINOPHILS # (AUTO) 0.2 x10^3/uL (0.0-0.2); EOSINOPHILS % (AUTO) 2.4 % (0.9-2.9); HEMOGLOBIN 11.2 g/dL (13.5-18.0); LYMPHOCYTES # (AUTO) 3.5 X10^3/uL (1.3-2.9); MEAN CORPUSCULAR HEMOGLOBIN 26.7 pg (27.0-34.0); MEAN CORPUSCULAR HGB CONC 32.9 g/dL (33.0-35.0); MEAN CORPUSCULAR VOLUME 81.2 fL (80.0-100.0); MONOCYTES % (AUTO) 10.1 % (0.0-13.0); NEUTROPHILS # (AUTO) 4.6 x10^3/uL (2.2-4.8); PLATELET COUNT 512 X10^3/uL (150.0-450.0); RED BLOOD COUNT 4.19 X10^6/uL (4.7-6.0); WHITE BLOOD COUNT 9.5 X10^3/uL (3.6-10.0)
[2023-04-13 05:49] LABS: BLOOD UREA NITROGEN 10 mg/dL (7-18); CALCIUM 8.6 mg/dL (8.5-10.1); CARBON DIOXIDE 22.9 mmol/L (21-32); CHLORIDE 102 mmol/L (98-107); CREATININE 0.54 mg/dL (0.70-1.30); GLUCOSE 96 mg/dL (65-99); POTASSIUM 4.2 mmol/L (3.5-5.1); SODIUM 135 mmol/L (136-145); eGFR NON BLACK RACES > 60 (>60)
[2023-04-13 06:16] LABS: ALANINE AMINOTRANSFERASE 50 Units/L (12-78); ALBUMIN 2.8 g/dL (3.4-5.0); ALKALINE PHOSPHATASE 114 Units/L (46-116); ASPARTATE AMINO TRANSFERASE 28 Units/L (15-37); COR CA(FOR HYPOALB) 9.6 mg/dL (8.5-10.1); TOTAL PROTEIN 6.3 g/dL (6.4-8.2)
[2023-04-13] MEDS: BACTRIM SUSP 20 ML PEG SCH ×2 (08:44→20:32)
[2023-04-13] MEDS: ZYVOX 600MG IV 600 MG/300 ML BAG IV SCH ×2 (08:44→20:22)
[2023-04-13] MEDS: AMANTADINE HCL PEG SCH ×2 (08:44→20:27)
[2023-04-13] MEDS: ELIQUIS NG SCH ×2 (08:45→20:23)
[2023-04-13] MEDS: PROTONIX INJ 40 MG VIAL IVP SCH (08:45)
[2023-04-13] MEDS: ROBITUSSIN DM PO SCH ×4 (08:45→20:25)
[2023-04-13] MEDS: PEPCID TAB 40 MG PEG SCH ×2 (08:45→20:23)
[2023-04-13] MEDS: PULMICORT NEB TX 0.5 MG NEB SCH ×2 (09:40→20:45)
[2023-04-13] MEDS: PERCOCET TAB 5/325 MG PEG SCH ×3 (13:11→20:25)
[2023-04-14] MEDS: XOPENEX 1.25 MG/3 ML NEBULE NEB SCH ×2 (00:30→05:32)
[2023-04-14] MEDS: PERCOCET TAB 5/325 MG PEG SCH ×3 (00:48→09:47)
[2023-04-14] MEDS: INDERAL TAB 10 MG PEG SCH (05:05)
[2023-04-14] MEDS: LIORESAL PEG SCH (05:05)
[2023-04-14 05:11] LABS: BASOPHILS # (AUTO) 0.1 X10^3/uL (0.0-0.1); BASOPHILS % (AUTO) 1.1 % (0.2-1.0); EOSINOPHILS # (AUTO) 0.1 x10^3/uL (0.0-0.2); HEMATOCRIT 33.6 % (42.0-54.0); HEMOGLOBIN 11.2 g/dL (13.5-18.0); LYMPHOCYTES # (AUTO) 3.6 X10^3/uL (1.3-2.9); LYMPHOCYTES % (AUTO) 33.6 % (21.0-51.0); MEAN CORPUSCULAR HEMOGLOBIN 26.6 pg (27.0-34.0); MEAN CORPUSCULAR HGB CONC 33.1 g/dL (33.0-35.0); MEAN CORPUSCULAR VOLUME 80.3 fL (80.0-100.0); MEAN PLATELET VOLUME 8.8 fL (7.4-11.0); MONOCYTES # (AUTO) 0.9 x10^3/uL (0.3-0.8); MONOCYTES % (AUTO) 8.4 % (0.0-13.0); NEUTROPHILS % (AUTO) 55.9 % (42.0-75.0); PLATELET COUNT 561 X10^3/uL (150.0-450.0); RED BLOOD COUNT 4.19 X10^6/uL (4.7-6.0); RED CELL DISTRIBUTION WIDTH 18.3 % (11.6-16.5); WHITE BLOOD COUNT 10.8 X10^3/uL (3.6-10.0)
[2023-04-14 05:21] LABS: ALANINE AMINOTRANSFERASE 50 Units/L (12-78); ALBUMIN 2.8 g/dL (3.4-5.0); ALKALINE PHOSPHATASE 103 Units/L (46-116); ASPARTATE AMINO TRANSFERASE 24 Units/L (15-37); BLOOD UREA NITROGEN 8 mg/dL (7-18); CALCIUM 8.4 mg/dL (8.5-10.1); CARBON DIOXIDE 26.4 mmol/L (21-32); CHLORIDE 101 mmol/L (98-107); COR CA(FOR HYPOALB) 9.4 mg/dL (8.5-10.1); CREATININE 0.56 mg/dL (0.70-1.30); GLUCOSE 107 mg/dL (65-99); POTASSIUM 3.9 mmol/L (3.5-5.1); SODIUM 135 mmol/L (136-145); TOTAL PROTEIN 6.3 g/dL (6.4-8.2); eGFR NON BLACK RACES > 60 (>60)
[2023-04-14] MEDS: PULMICORT NEB TX 0.5 MG NEB SCH (08:16)
[2023-04-14] MEDS: NS + KCL 20 MEQ/L 1,000 ML IV SCH (08:43)
[2023-04-14] MEDS: ZYVOX 600MG IV 600 MG/300 ML BAG IV SCH (08:43)
[2023-04-14] MEDS: ELIQUIS NG SCH (08:44)
[2023-04-14] MEDS: AMANTADINE HCL PEG SCH (08:44)
[2023-04-14] MEDS: PEPCID TAB 40 MG PEG SCH (08:44)
[2023-04-14] MEDS: PROTONIX INJ 40 MG VIAL IVP SCH (08:44)
[2023-04-14] MEDS: BACTRIM SUSP 20 ML PEG SCH (08:44)
[2023-04-14] MEDS: ROBITUSSIN DM PO SCH (08:44)
[2023-04-14 12:41] VITALS: TEMP 97.8
[2023-04-14 13:18] VITALS: BP 147/77; PULSE 121; RESP 24; O2SAT 97
== END 2023-04-14 13:35 | DRG 871 ==
LOC: MED/SURG 14:15 → ICU 15:14
PROVIDERS: ADMIT Internal Medicine; ATTEND Internal Medicine
DX: Z20.822 Contact with and (suspected) exposure to COVID-19; Z73.89 Other problems related to life management difficulty; N39.0 Urinary tract infection, site not specified; J18.8 Other pneumonia, unspecified organism; A41.9 Sepsis, unspecified organism; L89.613 Pressure ulcer of right heel, stage 3; R94.5 Abnormal results of liver function studies; Z93.3 Colostomy status; I10 Essential (primary) hypertension; M24.50 Contracture, unspecified joint; R00.0 Tachycardia, unspecified; B96.89 Other specified bacterial agents as the cause of diseases classified elsewhere; E83.42 Hypomagnesemia; M46.28 Osteomyelitis of vertebra, sacral and sacrococcygeal region; R79.1 Abnormal coagulation profile; L89.629 Pressure ulcer of left heel, unspecified stage; L89.154 Pressure ulcer of sacral region, stage 4; B95.62 Methicillin resistant Staphylococcus aureus infection as the cause of diseases classified elsewhere; Z93.1 Gastrostomy status; Z87.820 Personal history of traumatic brain injury; I87.2 Venous insufficiency (chronic) (peripheral); Z74.1 Need for assistance with personal care; R29.818 Other symptoms and signs involving the nervous system